=== PATIENT | female | born 1960 | race Caucasian/White ===

== ENCOUNTER 2016-12-09 14:25 | Emergency (ER) | payer BC ==
[~2016-12-09 14:25] MED LIST: DEXELENT; HCTZ; MACROBID100 M1; SYNTHROID125; TOPROL XL50 MG
== END 2016-12-09 14:41 | disposition home or self-care (01) ==
LOC: SED 14:25
DX: S81.812A Laceration without foreign body, left lower leg, initial encounter (principal); I10 Essential (primary) hypertension; X58.XXXA Exposure to other specified factors, initial encounter; Y92.009 Unspecified place in unspecified non-institutional (private) residence as the place of occurrence of the external cause; Z23 Encounter for immunization
CPT/HCPCS: 12001; 90471; 90715; 99283